=== PATIENT | female | born 1975 | race African-American/Black ===

== ENCOUNTER 2022-07-19 19:36 | Emergency (ER) | payer OTHER, SELFPAY ==
[2022-07-19 19:56] LABS: Absolute Lymphocytes (CBC) 2.8 K/uL (0.7-4.9); Hematocrit 35.4 % (36.0-45.0); Lymphocytes % 40.5 % (15.3-44.8); MCV 83.6 fL (80-100); MPV 10.8 fL (7.6-11.3); RBC Red Blood Cell Count 4.24 M/uL (3.86-4.86)
[2022-07-19] MEDS ORDERED: MECLIZINE HCL 12.5 MG TAB ONE (20:02)
[2022-07-19] MEDS ORDERED: hydrOXYzine HCL 25 MG TAB ONE (20:03)
[2022-07-19 20:28] LABS: Potassium 3.4 mEq/L (3.5-5.1); Thyroid Stimulating Hormone 2.42 uIU/mL (0.358-3.740); Troponin High Sensitivity 4.7 pg/mL (<58.9)
--- NOTE | 2022-07-19 21:42 | ER ---
[facility] Name: Cassidy Almendarez Age: 46 yrs Sex: Female : 1975 Arrival Date: 07/19/2022 Time: 19:36 Bed 5 Private MD: Diagnosis: Palpitations Presentation: 07/19 19:39 Chief complaint: Patient states: HAS BEEN TRYING TO WEAN HERSELF OFF OF HER BP MEDS. jj7 WAS AT THE STORE AND STARTED TO HAVE HEART PALPITATIONS AND ANXIETY EMS states: WAS SHOPPING AT [employer] AND STARTED TO HAVE ANXIETY. PT STOPPED TAKING HER BP MEDS FOR OVER A WEEK AND NOW HAS HIGH BP. Coronavirus screen: At this time, the client does not indicate any symptoms associated with coronavirus-19. Ebola Screen: No symptoms or risks identified at this time. Initial Sepsis Screen: Does the patient meet any 2 criteria? No. Patient's initial sepsis screen is negative. Does the patient have a suspected source of infection? No. Patient's initial sepsis screen is negative. Risk Assessment: Do you want to hurt yourself or someone else? Patient reports no desire to harm self or others. Onset of symptoms was July 19, 2022. 19:39 Method Of Arrival: EMS: [facility] j7 19:39 Acuity: BERTRAM 3 jj7 Triage Assessment: 19:49 General: Appears in no apparent distress. comfortable, Behavior is cooperative, jj7 appropriate for age, anxious. Pain: Denies pain. 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 - Social history:: Smoking status: Patient denies any tobacco usage or history of. Patient uses alcohol, but reports only rare drinking. occasionally. Patient/guardian denies using street drugs. Screenin:39 [facility] ED Fall Risk Assessment (Adult) History of falling in the last 3 months, jj7 including since admission No falls in past 3 months (0 pts) Confusion or Disorientation No (0 pts) Intoxicated or Sedated No (0 pts) Impaired Gait No (0 pts) Mobility Assist Device Used No (0 pt) Altered Elimination No (0 pt) Score/Fall Risk Level 0 - 2 = Low Risk. Abuse screen: Denies threats or abuse. Nutritional screening: No deficits noted. Tuberculosis screening: No symptoms or risk factors identified. Assessment: 19:39 Reassessment: SEE TRIAGE ASSESSMENT. jj7 Vital Signs: 19:39 BP 158 / 102; Pulse 97; Resp 17; Temp 98; Pulse Ox 100% on R/A; Weight 86.18 kg; Height jj7 5 ft. 1 in. ; Pain 0/10; 20:30 BP 159 / 101; Pulse 83; Resp 20; Pulse Ox 100% ; jj7 21:34 BP 141 / 66; Pulse 81; Resp 20; Pulse Ox 99% ; Pain 0/10; jj7 21:49 BP 143 / 75; Pulse 81; Resp 18; Pulse Ox 100% ; jj7 19:39 Body Mass Index 35.90 (86.18 kg, 154.94 cm) jj7 19:39 Pain Scale: Adult jj7 21:34 Pain Scale: Adult jj7 ED Course: 19:38 Patient arrived in ED. kl 19:39 Althea Munroe FNP-C is [facility]. kb 19:39 James Shah MD is Attending Physician. kb 19:39 Patient has correct armband on for positive identification. Bed in low position. Call jj7 light in reach. Side rails up X 1. Warm blanket given. 19:39 No provider procedures requiring assistance completed. Inserted saline lock: 20 gauge jj7 in left antecubital area, using aseptic technique. Accessed Maintain EMS IV. Dressing intact. Site clean \T\ dry. Gauge \T\ site: 20 RIGHT AC. . 19:40 Imer Quinteros RN is Primary Nurse. rv 19:49 Triage completed. jj7 19:49 Arm band placed on left wrist. Patient placed in an exam room, on a stretcher, on jj7 oxygen, on monitor and storage bin tender, on pulse oximetry. 20:56 XRAY Chest (1 view) In Process Unspecified. EDMS 21:50 IV discontinued, intact, bleeding controlled, No redness/swelling at site. Pressure jj7 dressing applied. Administered Medications: 20:12 Drug: hydrOXYzine PO 25 mg Route: PO; jj7 21:51 Follow up: Response: Marked relief of symptoms jj7 21:49 Drug: Potassium Chloride PO 20 mEq Route: PO; j7 21:51 Follow up: Response: No adverse reaction 7 Medication: 21:50 VIS not applicable for this client. jj7 Outcome: 21:41 Discharge ordered by MD. sy 21:50 Discharged to home ambulatory, with family. j7 21:50 Condition: improved 21:50 Discharge instructions given to patient, Instructed on discharge instructions, medication usage. 21:51 Patient left the ED. jj7 Signatures: Dispatcher [employer] EDMS Althea Munroe, TERA PHELPS-Lnida Benavides RN Imer Krishnamurthy RN Jerald Galvin RN RN jj7
--- NOTE | 2022-07-19 21:42 | EDPHYS ---
Physician Documentation [facility] Name: Cassidy Almendarez Age: 46 yrs Sex: Female : 1975 Arrival Date: 07/19/2022 Time: 19:36 Bed 5 Private MD: ED Physician James Shah HPI: 07/19 23:30 This 46 yrs old Black Female presents to ER via EMS with complaints of palpitations. kb 23:30 The patient presents with a history of heart racing. Context: The symptoms occur at kb rest. Onset: The symptoms/episode began/occurred just prior to arrival. Duration: The patient or guardian reports a single episode. Modifying factors: The symptoms are aggravated by nothing. The symptoms are alleviated by nothing. Associated signs and symptoms: Pertinent positives: anxiety, SOB. Severity of symptoms: At their worst the symptoms were moderate in the emergency department the symptoms are unchanged. The patient has not experienced similar symptoms in the past. The patient has not recently seen a physician. Pt reports she was sitting in the car, finishing a conversation in the [employer] parking lot before going in. States she had turned the car off so isn't sure if she got too hot, but when she stood up to go into the store she started having palpitations, shortness of breath and felt like she was going to pass out. States she stopped taking her losartan 2 weeks ago because she was trying to manage the HTN on her own. . 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 - Social history:: Smoking status: Patient denies any tobacco usage or history of. Patient uses alcohol, but reports only rare drinking. occasionally. Patient/guardian denies using street drugs. ROS: 21:24 Constitutional: Negative for fever, chills, and weight loss. kb 21:24 Cardiovascular: Positive for palpitations. 21:24 Respiratory: Positive for shortness of breath. 21:24 All other systems are negative. Exam: 19:55 Constitutional: This is a well developed, well nourished patient who is awake, alert, kb and in no acute distress. Head/Face: Normocephalic, atraumatic. ENT: Moist Mucous membranes Cardiovascular: Regular rate and rhythm with a normal S1 and S2. No gallops, murmurs, or rubs. No pulse deficits. Respiratory: Respirations even and unlabored. No increased work of breathing. Talking in full sentences Abdomen/GI: Soft, non-tender. No distention Skin: Warm, dry with normal turgor. Normal color. MS/ Extremity: Pulses equal, no cyanosis. Neurovascular intact. Full, normal range of motion. Neuro: Awake and alert, GCS 15, oriented to person, place, time, and situation. Moves all extremities. Normal gait. 19:55 Constitutional: The patient appears anxious. 19:55 ECG was reviewed by the Attending Physician. Vital Signs: 19:39 BP 158 / 102; Pulse 97; Resp 17; Temp 98; Pulse Ox 100% on R/A; Weight 86.18 kg; Height jj7 5 ft. 1 in. ; Pain 0/10; 20:30 BP 159 / 101; Pulse 83; Resp 20; Pulse Ox 100% ; jj7 21:34 BP 141 / 66; Pulse 81; Resp 20; Pulse Ox 99% ; Pain 0/10; jj7 21:49 BP 143 / 75; Pulse 81; Resp 18; Pulse Ox 100% ; jj7 19:39 Body Mass Index 35.90 (86.18 kg, 154.94 cm) 7 19:39 Pain Scale: Adult jj7 21:34 Pain Scale: Adult jj7 MDM: 19:39 Patient medically screened. kb 23:33 Differential diagnosis: arrythmia, dehydration, stress disorder. Data reviewed: vital kb signs, nurses notes. Counseling: I had a detailed discussion with the patient and/or guardian regarding: the historical points, exam findings, and any diagnostic results supporting the discharge/admit diagnosis, lab results, radiology results, the need for outpatient follow up, a family practitioner, to return to the emergency department if symptoms worsen or persist or if there are any questions or concerns that arise at home. 07/19 19:40 Order name: Basic Metabolic Panel; Complete Time: 20:35 kb 07/19 19:40 Order name: CBC with Diff; Complete Time: 20:10 kb 07/19 19:40 Order name: D-Dimer; Complete Time: 20:03 kb 07/19 19:40 Order name: Magnesium; Complete Time: 20:35 kb 07/19 19:40 Order name: NT PRO-BNP; Complete Time: 20:35 kb 07/19 19:40 Order name: Troponin HS; Complete Time: 20:35 kb 07/19 19:40 Order name: TSH; Complete Time: 20:35 kb 07/19 19:40 Order name: XRAY Chest (1 view) kb 07/19 19:40 Order name: EKG; Complete Time: 19:41 kb 07/19 19:40 Order name: Cardiac monitoring; Complete Time: 19:57 kb 07/19 19:40 Order name: EKG - Nurse/Tech; Complete Time: 19:57 kb 07/19 19:40 Order name: IV Saline Lock; Complete Time: 19:57 kb 07/19 19:40 Order name: Labs collected and sent; Complete Time: 19:57 kb 07/19 19:40 Order name: O2 Per Protocol; Complete Time: 19:57 kb 07/19 19:40 Order name: O2 Sat Monitoring; Complete Time: 19:57 kb EC:55 Rate is 74 beats/min. Rhythm is regular. QRS Ebony is Normal. OR interval is normal at kb 120 msec. QRS interval is normal at 78 msec. QT interval is normal at 415 msec. Administered Medications: 20:12 Drug: hydrOXYzine PO 25 mg Route: PO; jj7 21:51 Follow up: Response: Marked relief of symptoms jj7 21:49 Drug: Potassium Chloride PO 20 mEq Route: PO; jj7 21:51 Follow up: Response: No adverse reaction jj7 Disposition Summary: 07/19/22 21:41 Discharge Ordered Location: Home kb Condition: Stable kb Diagnosis - Palpitations kb Followup: kb - With: Emergency Department - When: As needed - Reason: Worsening of condition Followup: kb - With: Private Physician - When: 2 - 3 days - Reason: Recheck today's complaints, Continuance of care, Re-evaluation by your physician Discharge Instructions: - Discharge Summary Sheet kb - Panic Attack, [id number] kb - Palpitations, [id number] kb Forms: - Medication Reconciliation Form kb - Thank You Letter kb - Antibiotic Education kb - Prescription Opioid Use kb Addendum: 07/22/2022 15:59 Co-signature as Attending Physician, James Shah MD I reviewed the patient's care r t provided by the Advanced Practice Provider and agree with the diagnosis and treatment plan. Signatures: Dispatcher [employer] Althea Segura, TERA PHELPS-Jerald Ware RN RN jj7 James Shah MD MD rt
[2022-07-19] MEDS ORDERED: POTASSIUM CL SA 10 MEQ TAB PO ONE (21:49)
[2022-07-19 22:54] VITALS: TEMP 98
[2022-07-19 22:58] VITALS: BP 143/75; O2SAT 100
--- NOTE | 2022-07-21 07:20 | EKG ---
Test Date: 2022-07-19 Test Time: 19:52:11 Cost Recorder: RV MEASUREMENT RESULTS: Intervals: Rate: 74 CT: 120 QRSD: 78 QT: 374 QTc: 415 [place]: P: 32 CT: 120 QRS: -8 T: -19 INTERPRETIVE STATEMENTS: Normal sinus rhythm Nonspecific T wave abnormality Abnormal ECG No previous ECG available for comparison Electronically Signed On 07-21-22 07:14:59 CDT by Howard James
== END 2022-07-19 21:51 | disposition home or self-care (01) ==
LOC: ER 19:36
DX: R00.2 Palpitations (principal)
CPT/HCPCS: 36415; 71045; 80048; 83735; 83880; 84443; 84484; 85025; 85379; 93005; 99285; J8597